=== PATIENT | male | born 1970 | race Caucasian/White ===

== ENCOUNTER 2020-11-19 10:33 | Emergency (ER) | payer OTHER, SELFPAY ==
[2020-11-19] VITALS (20 sets, daily range): BP systolic 110–128; BP diastolic 34–85; PULSE 66–84; RESP 12–22; TEMP 36.6; O2SAT 94–99
--- NOTE | ~2020-11-19 | XR_ITS ---
EXAMINATION: XR chest 2V EXAM DATE: 11/19/2020 12:09 INDICATION: Syncope, history of arrhythmia. TECHNIQUE: Frontal and lateral projections of the chest obtained and reviewed. There is no prior kush dy for comparison. FINDINGS: There is pulmonary vascular congestion. Heart is upper limits of normal in size. The lungs are clear. There are no pleural effusions. There is no pneumothorax suspected. The bones and sof t tissues are unremarkable. IMPRESSION: Borderline cardiomegaly. Pulmonary vascular congestion. Reviewed, dictated and finalized at location A.
--- NOTE | 2020-11-19 10:51 | ECG_ITS ---
Measurements Intervals [place] Rate: 76 P: [place]: 0 QRS: 75 QRSD: 107 T: 11 QT: 396 QTc: 446 Interpretive Statements ATRIAL FIBRILLATION DELAYED PRECORDIAL R/S TRANSITION BORDERLINE ST-T WAVE ABNORMALITY- INFERIOR LEADS BASELINE ARTIFACT- I, III, AVR, AVL, AVF ABNORMAL ECG Electronically Signed On 11-20-2020 7:57:40 CDT by Pepito Mcdonald D.O.
--- NOTE | 2020-11-19 11:13 | ED.CHESTPAIN ---
HPI - Chest Pain General Chief Complaint: Chest Pain Stated Complaint: ambulance Related Data Home Medications Medication Instructions Recorded Confirmed allopurinol 300 mg PO DAILY 11/19/20 11/19/20 amlodipine-benazepril 1 cap PO DAILY 11/19/20 11/19/20 Allergies Allergy/AdvReac Type Severity Reaction Status Date / Time No Known Allergies Allergy Verified 11/19/20 10:54 Course Vital Signs Vital signs: Vital Signs Temperature 36.6 C 11/19/20 10:33 Pulse Rate 67 11/19/20 10:33 Respiratory Rate 18 11/19/20 10:33 Blood Pressure 117/78 11/19/20 10:33 Pulse Oximetry 95 11/19/20 10:33 Temperature 36.6 C 11/19/20 10:33 Pulse Rate 72 11/19/20 11:01 Respiratory Rate 19 11/19/20 11:01 Blood Pressure 115/85 11/19/20 11:01 Pulse Oximetry 95 11/19/20 11:01 Discharge Plan Discharge Prescriptions: No Action allopurinol 300 mg Tablet 300 mg PO DAILY RF: 0 amlodipine-benazepril 10-20 mg Capsule 1 cap PO DAILY RF: 0
--- NOTE | 2020-11-19 11:13 | ED.SYNCOPE ---
HPI - Syncope General Chief Complaint: Chest Pain Stated Complaint: ambulance Time Seen by Provider: 11/19/20 11:00 Source: patient and family Mode of arrival: ambulatory Limitations: no limitations History of Present Illness HPI narrative: Discussed history with patient, and paramedics. He comes in after having a syncopal episode at home. He and the had just had sex. She got up to go to the bathroom and he felt hot and diaphoretic. She returned and found him unconscious. He remained unconscious for several minutes. When the paramedics got there he had a heart rate in the 200s, which the medic thought was V tach. She asked him to bear down and he converted. He is now in A fib with a rate in the 70s. He said he did not feel well this am, but he denies any shortness of breath this am, or chest pain. He denies any other symptoms. MD complaint: loss of consciousness Onset (ago): minute(s) Witnessed: Yes - by Bystander Context: at rest Injuries sustained associated with event: none Current symptoms: none History: other (tachacardia) Treatments prior to arrival: none and other (bearing down) Related Data Home Medications Medication Instructions Recorded Confirmed allopurinol 300 mg PO DAILY 11/19/20 11/19/20 amlodipine-benazepril 1 cap PO DAILY 11/19/20 11/19/20 Allergies Allergy/AdvReac Type Severity Reaction Status Date / Time No Known Allergies Allergy Verified 11/19/20 10:54 Review of Systems Constitutional: Comments: states he did not feel well this am Eyes: Eyes: Reports no additional eye complaints ENT: Reports system reviewed and no additional complaints, except as documented Cardiovascular: Cardiovascular: Reports no additional cardiovascular complaints Respiratory: Respiratory: Reports no additional respiratory complaints Gastrointestinal: Gastrointestinal: Reports no additional gastrointestinal complaints Genitourinary: Genitourinary: Reports no additional male genitourinary complaints Musculoskeletal: Musculoskeletal: Reports no additional musculoskeletal complaints Integumentary/Breasts: Skin/Breast: Reports system reviewed and no additional complaints, except as docu Neurologic: Reports system reviewed and no additional complaints, except as documented Psychiatric: Psychiatric: Reports no additional psychiatric complaints Endocrine: Endocrine: Reports no additional endocrine complaints Hematologic/Lymphatic: Hematologic/Lymphatic: Reports no additional hematologic/lymphatic complaints Allergic/Immunologic: Allergic/Immunologic: Reports no additional allergic/immunologic complaints PMFSH Past Medical History Medical History (Updated 11/19/20 @ 13:15 by Yaakov Ivan MD) Gout Hypertension Tachycardia Surgical History Surgical History (Updated 11/19/20 @ 13:04 by Yaakov Ivan MD) H/O vasectomy Family History Family History (Updated 11/19/20 @ 13:06 by Yaakov Ivan MD) Father CHF (congestive heart failure) Pacemaker Mother Hypertension Cerebrovascular accident Social History Social History (Updated 11/19/20 @ 13:06 by Yaakov Ivan MD) Smoking status: Never smoker Alcohol intake: never Living arrangements: with family Additional living arrangements comments: Sexual Orientation (if Verbalized by the Patient): Straight or Heterosexual Exam Const: General: no acute distress Orientation/consciousness: patient oriented x3 HENMT: Head: normal to inspection Eyes: Conjunctivae: conjunctivae normal Neck: Neck: normal visual inspection Chest: Chest palpation & inspection: normal inspection of the chest Resp: Effort & Inspection: normal respiratory effort Auscultation: clear to auscultation bilaterally Cardio: Other: irregular rate and rhythm GI: GI Palp: Yes Soft to palpation (non tender) Skin: General skin exam: normal color Neuro: General: patient oriented x3 Extrem: General: normal to inspection Psych: Appe
[2020-11-19 11:31] LABS: Basophils Absolute Auto 0.02 K/mm3 (0.00-0.10); Basophils Percent Auto 0.1 % (0.0-1.0); Eosinophils Absolute Auto 0.15 K/mm3 (0.02-0.50); Hematocrit 39.4 % (40.0-54.0); Hemoglobin 13.4 g/dL (14.0-18.0); Immature Granulocyte Absolute 0.17 K/mm3 (0.00-0.00); Immature Granulocyte Percent A 1.1 % (0.0-0.0); Lymphocytes Absolute Auto 0.78 K/mm3 (1.10-4.50); Lymphocytes Percent Auto 5.2 % (18.0-42.0); Mean Corpuscular Hemoglobin 29.7 pg (27.0-31.0); Mean Corpuscular Volume 87.4 fL (78.0-102.0); Mean Platelet Volume 9.6 fl (8.7-11.0); Monocytes Absolute Auto 0.66 K/mm3 (0.10-0.90); Monocytes Percent Auto 4.4 % (2.0-11.0); Neutrophils Absolute Auto 13.3 K/mm3 (1.7-7.2); Neutrophils Percent Auto 88.2 % (50.0-70.0); Platelet Count Result 190 K/mm3 (150-420); Red Blood Count 4.51 M/mm3 (4.70-6.10); Red Cell Distribution Width 12.6 % (11.6-14.4); White Blood Count 15.1 K/mm3 (4.8-10.8)
[2020-11-19 11:47] LABS: BNP 10 pg/mL (0-100)
[2020-11-19 11:49] LABS: Alanine Aminotransferase 50 U/L (16-63); Albumin Level 3.5 g/dL (3.4-5.0); Alkaline Phosphatase 57 U/L (46-116); Anion Gap 8 mmol/L (8-16); Aspartate Amino Transferase 25 U/L (15-37); Bilirubin,Total 0.5 mg/dL (0.00-1.00); Blood Urea Nitrogen 17 mg/dL (7-18); Calcium 8.8 mg/dL (8.5-10.1); Carbon Dioxide 29 mmol/L (21-32); Chloride 101 mmol/L (98-108); Estimated CRCL calculation 91 ml/min; Estimated Glomerular Filt Rate 54; Glucose 219 mg/dL (70-99); Magnesium 1.8 mg/dL (1.8-2.4); Osmolality Calculated 294 mOsm/kg (285-295); Potassium 3.7 mmol/L (3.5-5.1); Sodium 138 mmol/L (136-145); Total Protein 7.2 g/dL (6.4-8.2)
[2020-11-19 11:50] LABS: Troponin I 65.7 ng/L (0.00-60.4)
[2020-11-19] MEDS: POTASSIUM BICARBONATE 25 MEQ TABEF 50 MEQ PO (12:36)
--- NOTE | 2020-11-19 12:39 | PC.NURSE ---
DR ADAIR SPEAKING WITH [facility] [place]
--- NOTE | 2020-11-19 13:17 | PC.NURSE ---
no change in pt status. pt sitting on stretcher, at bedside.
[2020-11-19 14:26] LABS: D Dimer 0.36 mg/L (0.19-0.50); Partial Thromboplastin Time 21.9 SEC (23.90-30.70); Prothrombin Time 10.7 Seconds (9.50-12.10)
--- NOTE | 2020-11-19 14:29 | PC.NURSE ---
Pt transferred to [facility] in [place], [place] room 452 per [facility]
== END 2020-11-19 14:29 | disposition short-term general hospital (02) ==
PROVIDERS: Emergency Provider Emergency Medicine
DX: R55 Syncope and collapse (principal); I10 Essential (primary) hypertension
CPT/HCPCS: 36415; 71046; 80053; 83735; 83880; 84484; 85025; 85380; 85610; 85730; 93005; 99285; A9270

== ENCOUNTER 2021-01-14 02:32 | Emergency (ER) | payer OTHER, SELFPAY ==
--- NOTE | ~2021-01-14 | XR_ITS ---
EXAMINATION: XR chest 1V portable EXAM DATE: 01/14/2021 03:00 INDICATION: Syncope, dyspnea, nausea. Diaphoretic. TECHNIQUE: Portable AP frontal chest x-ray was obtained. Comparison is made to prior examination from 11/19/2020. FINDINGS: The lungs are clear. There are no pleural effusions. Cardiac silhouette is prominent but magnified on this AP technique. There is no pneumothorax suspected. The bones and soft tissues are unremarkable. IMPRESSION: No acute cardiopulmonary findings. Reviewed, dictated and finalized at location A.
[2021-01-14 02:35] VITALS: BP 110/80; PULSE 90; RESP 18; TEMP 37; O2SAT 98
--- NOTE | 2021-01-14 02:38 | ECG_ITS ---
Measurements Intervals [place] Rate: 89 P: [place]: 0 QRS: 19 QRSD: 113 T: 5 QT: 367 QTc: 448 Interpretive Statements ATRIAL FIBRILLATION INTRAVENTRICULAR CONDUCTION DELAY DELAYED PRECORDIAL R/S TRANSITION BORDERLINE ST-T WAVE ABNORMALITY- INFERIOR LEADS BASELINE ARTIFACT- I, III, AVF ABNORMAL ECG Electronically Signed On 01-14-2021 17:59:40 CDT by Pepito Mcdonald D.O.
--- NOTE | 2021-01-14 02:42 | ED.SYNCOPE ---
HPI - Syncope General Chief Complaint: Arrhythmia/Palpitations Stated Complaint: PAIN Time Seen by Provider: 01/14/21 02:32 Source: patient and family Mode of arrival: EMS Limitations: no limitations History of Present Illness HPI narrative: 50-year-old man with a history of V-tach and atrial fibrillation comes in today after an episode of syncope while he was having intercourse with his . He was supine when it happened and was unconscious only for few seconds. EMS found his heart rate to be in the 130s but has since improved. His initial pulse ox on room air was 92%. He felt nauseated, short of breath and sweaty afterward, but is now improving. He had no chest pain. He felt unwell just prior to the syncopal episode but prior to that was doing well. he is scheduled to meet with his brown sourer (Dr. Bush) and lcsw (Dr Mcgraw) next week. He was diagnosed with COVID 1 month ago. MD complaint: loss of consciousness Onset (ago): minute(s) (45) -: second(s) Prodromal symptoms: other ( Did not feel well) Witnessed: Yes - by Bystander Context: during exertion Injuries sustained associated with event: none Current symptoms: shortness of breath, nausea and other (diaphoresis) History: previous syncopal episode Treatments prior to arrival: none Related Data Home Medications Medication Instructions Recorded Confirmed allopurinol 300 mg PO DAILY 11/19/20 01/14/21 apixaban [Eliquis] 5 mg PO DAILY 01/14/21 01/14/21 lisinopril [Prinivil] See Rx Instructions .ROUTE .COMPLEX 01/14/21 01/14/21 metoprolol succinate [Toprol XL] See Rx Instructions .ROUTE .COMPLEX 01/14/21 01/14/21 Allergies Allergy/AdvReac Type Severity Reaction Status Date / Time No Known Allergies Allergy Verified 11/19/20 10:54 Review of Systems Review of Systems: All systems reviewed & are unremarkable except as noted in HPI and below Constitutional: Constitutional: Denies chills, Reports fatigue, Denies fever(s) and Denies weakness Eyes: Eyes: Denies change in vision and Denies photophobia ENT: Denies nasal congestion and Denies sore throat Cardiovascular: Cardiovascular: Denies chest pain and Denies radiating jaw, neck or arm pain Respiratory: Respiratory: Denies cough, Reports dyspnea and Denies wheezing Gastrointestinal: Gastrointestinal: Denies abdominal pain, Denies diarrhea, Reports nausea and Reports vomiting Musculoskeletal: Musculoskeletal: Denies arthralgias and Denies joint swelling Integumentary/Breasts: Skin/Breast: Denies pruritus, Denies erythema and Denies rash Neurologic: Denies vertigo, Denies dizziness, Reports syncope, Denies headache(s), Denies focal weakness and Denies numbness Hematologic/Lymphatic: Hematologic/Lymphatic: Reports easy bleeding and Reports easy bruising Allergic/Immunologic: Allergic/Immunologic: Denies lip swelling and Denies throat swelling PMFSH Past Medical History Medical History Gout Hypertension Tachycardia Surgical History Surgical History H/O vasectomy Family History Family History (Updated 11/19/20 @ 13:06 by Yaakov Ivan MD) Father CHF (congestive heart failure) Pacemaker Mother Hypertension Cerebrovascular accident Social History Social History Smoking status: Never smoker Alcohol intake: never Additional living arrangements comments: Gender identity (if verbalized by the patient): Male Exam Const: General: alert Nutritional Appearance: obese Orientation/consciousness: patient oriented x3 Limitations: no limitations Other: Moderate acute distress, diaphoretic. Eyes: Conjunctivae: conjunctivae normal Pupils: Equal, round and reactive pupils present EOM: EOMs intact bilaterally Chest: Chest palpation & inspection: normal inspection of the chest Resp: Effort & I
[2021-01-14] MEDS: ONDANSETRON INJ 4 MG/2 ML VIAL IV PUSH (02:49)
[2021-01-14 02:58] LABS: Basophils Absolute Auto 0.02 K/mm3 (0.00-0.10); Basophils Percent Auto 0.2 % (0.0-1.0); Eosinophils Absolute Auto 0.13 K/mm3 (0.02-0.50); Eosinophils Percent Auto 1.3 % (1.0-6.0); Hematocrit 43.1 % (40.0-54.0); Hemoglobin 14.4 g/dL (14.0-18.0); Immature Granulocyte Absolute 0.05 K/mm3 (0.00-0.00); Immature Granulocyte Percent A 0.5 % (0.0-0.0); Lymphocytes Absolute Auto 1.72 K/mm3 (1.10-4.50); Lymphocytes Percent Auto 17.3 % (18.0-42.0); Mean Corpuscular HGB Conc 33.4 g/dL (32.0-36.0); Mean Corpuscular Hemoglobin 29.8 pg (27.0-31.0); Mean Corpuscular Volume 89.2 fL (78.0-102.0); Monocytes Absolute Auto 0.41 K/mm3 (0.10-0.90); Monocytes Percent Auto 4.1 % (2.0-11.0); Neutrophils Absolute Auto 7.6 K/mm3 (1.7-7.2); Neutrophils Percent Auto 76.6 % (50.0-70.0); Platelet Count Result 247 K/mm3 (150-420); Red Blood Count 4.83 M/mm3 (4.70-6.10); Red Cell Distribution Width 13.2 % (11.6-14.4); White Blood Count 9.9 K/mm3 (4.8-10.8)
[2021-01-14 03:03] VITALS: BP 120/58; PULSE 70; RESP 18; O2SAT 100
[2021-01-14 03:11] LABS: INR 1.1; Partial Thromboplastin Time 25.6 SEC (23.90-30.70); Prothrombin Time 11.9 Seconds (9.50-12.10)
[2021-01-14 03:19] LABS: Alanine Aminotransferase 66 U/L (16-63); Albumin Level 4.1 g/dL (3.4-5.0); Alkaline Phosphatase 65 U/L (46-116); Anion Gap 14 mmol/L (8-16); Aspartate Amino Transferase 35 U/L (15-37); Bilirubin,Total 0.7 mg/dL (0.00-1.00); Blood Urea Nitrogen 25 mg/dL (7-18); Calcium 9.2 mg/dL (8.5-10.1); Carbon Dioxide 25 mmol/L (21-32); Chloride 103 mmol/L (98-108); Estimated CRCL calculation 59 ml/min; Estimated Glomerular Filt Rate 50; Glucose 190 mg/dL (70-99); NT Pro B Type Natriuretic Pept 268 pg/mL (0-125); Osmolality Calculated 303 mOsm/kg (285-295); Potassium 3.3 mmol/L (3.5-5.1); Sodium 142 mmol/L (136-145); Total Protein 7.7 g/dL (6.4-8.2)
[2021-01-14 03:20] LABS: Troponin I 7.3 ng/L (0.00-60.4)
[2021-01-14 03:30] VITALS: BP 111/68; PULSE 60; RESP 18; TEMP 36.6; O2SAT 100
[2021-01-14 04:05] VITALS: BP 111/57; PULSE 69; RESP 16; O2SAT 100
[2021-01-14] MEDS: SODIUM CHLORIDE 0.9% IV 1,000 ML 999 ML IV CONT (04:28)
[2021-01-14 05:05] VITALS: BP 108/60; PULSE 64; RESP 16; TEMP 36.6; O2SAT 100
--- NOTE | 2021-01-14 05:08 | PC.NURSE ---
[address] [facility], no beds 0335 called [facility], same level of care 0340 patient finally agreed to [facility]
--- NOTE | 2021-01-14 05:15 | PC.NURSE ---
[address] [facility], 0514 Hospitalist called back
[2021-01-14 06:05] LABS: Troponin I 14.7 ng/L (0.00-60.4)
[2021-01-14 07:06] VITALS: BP 108/60; PULSE 60; RESP 16; TEMP 36.6; O2SAT 98
== END 2021-01-14 07:09 | disposition short-term general hospital (02) ==
PROVIDERS: Emergency Provider Emergency Medicine
DX: R55 Syncope and collapse (principal); I48.91 Unspecified atrial fibrillation; R06.02 Shortness of breath
CPT/HCPCS: 36415; 71045; 80053; 83880; 84484; 85025; 85380; 85610; 85730; 93005; 96361; 96374; 99285; J2405; J7030

== ENCOUNTER 2021-01-18 22:20 | Emergency (ER) | payer OTHER, SELFPAY ==
[2021-01-18 22:24] VITALS: BP 83/47; PULSE 247; RESP 20; TEMP 35.6; O2SAT 96
[2021-01-18 22:30] VITALS: PULSE 109
[2021-01-18] MEDS: MIDAZOLAM HCL (*CRX) 2 MG/2 ML VIAL IV PUSH (22:32)
[2021-01-18] MEDS: fentaNYL CITRATE INJ (*CRX) 100 MCG/2 ML VIAL 75 MCG IV PUSH (22:32)
--- NOTE | 2021-01-18 22:41 | ECG_ITS ---
Measurements Intervals [place] Rate: 109 P: AK: 0 QRS: 99 QRSD: 109 T: 28 QT: 355 QTc: 479 Interpretive Statements ATRIAL FIBRILLATION WITH RAPID VENTRICULAR RESPONSE RIGHT AXIS DEVIATION BORDERLINE R WAVE PROGRESSION, ANTERIOR LEADS BORDERLINE ST-T WAVE ABNORMALITY- ANTEROLAT/INF LEADS ABNORMAL ECG Electronically Signed On 01-19-2021 6:17:54 CDT by Pepito Mcdonald D.O.
[2021-01-18] MEDS: SODIUM CHLORIDE 0.9% IV 1,000 ML 999 ML IV CONT (22:50)
--- NOTE | 2021-01-18 22:50 | ECG_ITS ---
Measurements Intervals [place] Rate: 247 P: [place]: 0 QRS: 220 QRSD: 278 T: 0 QT: 267 QTc: 542 Interpretive Statements WIDE COMPLEX TACHYCARDIA, PROBABLY VENTRICULAR TACHYCARDIA BASELINE ARTIFACT- I, AVL ABNORMAL ECG Electronically Signed On 01-19-2021 6:22:23 CDT by Pepito Mcdonald D.O.
[2021-01-18 23:12] LABS: Basophils Absolute Auto 0.01 K/mm3 (0.00-0.10); Basophils Percent Auto 0.1 % (0.0-1.0); Eosinophils Absolute Auto 0.12 K/mm3 (0.02-0.50); Eosinophils Percent Auto 1.2 % (1.0-6.0); Hematocrit 42.6 % (40.0-54.0); Hemoglobin 13.8 g/dL (14.0-18.0); Lymphocytes Absolute Auto 1.18 K/mm3 (1.10-4.50); Lymphocytes Percent Auto 12.2 % (18.0-42.0); Mean Corpuscular HGB Conc 32.4 g/dL (32.0-36.0); Mean Corpuscular Hemoglobin 29.6 pg (27.0-31.0); Mean Corpuscular Volume 91.4 fL (78.0-102.0); Mean Platelet Volume 10.5 fl (8.7-11.0); Monocytes Absolute Auto 0.22 K/mm3 (0.10-0.90); Monocytes Percent Auto 2.3 % (2.0-11.0); Neutrophils Percent Auto 83.2 % (50.0-70.0); Platelet Count Result 241 K/mm3 (150-420); Red Blood Count 4.66 M/mm3 (4.70-6.10); Red Cell Distribution Width 13.4 % (11.6-14.4); White Blood Count 9.7 K/mm3 (4.8-10.8)
--- NOTE | 2021-01-18 23:12 | ED.GENADULT ---
HPI - General Adult General Chief complaint: Arrhythmia/Palpitations Stated complaint: AMB Source: patient and EMS Mode of arrival: EMS Limitations: no limitations History of Present Illness HPI narrative: Lorenzo is a 50M with a PMH of afib, hypertension, and gout that was brought in by EMS in wide complex regular ventricular tachycardia. He was reportedly having intercourse with his when he had palpitations, became lightheaded, diaphoretic and had chest pain that radiated to his shoulder. After this EMS was called. EMS gave 150 of amiodarone in the truck before arrival with no effect. Upon arrival he was struggling to remain conscious and could not give further history. Related Data Home Medications Medication Instructions Recorded Confirmed allopurinol 300 mg PO DAILY 11/19/20 01/18/21 apixaban [Eliquis] 5 mg PO BID 01/14/21 01/18/21 lisinopril [Prinivil] 10 mg PO DAILY 01/14/21 01/18/21 metoprolol succinate [Toprol XL] 50 mg PO DAILY 01/14/21 01/18/21 Allergies Allergy/AdvReac Type Severity Reaction Status Date / Time No Known Allergies Allergy Verified 11/19/20 10:54 Review of Systems Review of Systems: ROS unobtainable: Yes unobtainable due to medical condition FOR[facility]LY [facility] Past Medical History Medical History Gout Hypertension Tachycardia Surgical History Surgical History H/O vasectomy Family History Family History Father CHF (congestive heart failure) Pacemaker Mother Hypertension Cerebrovascular accident Social History Social History Smoking status: Never smoker Alcohol intake: never Additional living arrangements comments: Gender identity (if verbalized by the patient): Male Exam Const: General: diaphoretic Orientation/consciousness: patient oriented x3 Limitations: other limitations Other: In severe distress struggling to stay conscious, very diaphoretic HENMT: Other: Normocephalic, atraumatic Eyes: Conjunctivae: conjunctivae normal Pupils: Equal, round and reactive pupils present Neck: Other: JVD was present Chest: Chest palpation & inspection: normal inspection of the chest Resp: Effort & Inspection: labored, retractions, tachypneic and uses accessory muscles Cardio: Rate: tachycardic Other: Very tachycardic. Given rate little else could be heard. GI: Inspection: non-distended GI Palp: Yes Soft to palpation, No Tenderness to palpation present (GI) and No Guarding due to palpation present (GI) Skin: Other: Was very pale and diaphoretic Neuro: General: patient oriented x3 and moves all extremities Extrem: General: normal to inspection Psych: Appearance: grossly normal Affect: Anxious affect present Attitude: cooperative Thought content: Yes Normal thought content present Course Course Emergency Course: Upon arrival another EKG was performed immediately which showed wide complex tachycardia with a rate of 247. Immediatly after seeing this preparations were made for cardioversion. He was given 2mg of versed and 75mg of fentanyl. Following administration a shock was administered with 100J synchronized. Following synchronization he went into afib w/ RVR with a rate of 109. His BP dropped to 80s systolic so he was given more fluids. Later his BP dropped to the 80's systolic so an additional bag of fluids was given which brought it to the 90's. I called [facility] at [phone] who called back promptly with Dr. Smart of [facility]. He recommended Levophed as there are no signs of acute heart failure and to await the call back from the lithograph printer. We received a call back from [facility] at [phone] who who reported that they may not have a bed in the ICU but she is going to double check with the lithograph printer. The levophed was sto
[2021-01-18 23:19] LABS: INR 1.1; Prothrombin Time 11.4 Seconds (9.50-12.10)
[2021-01-18 23:30] VITALS: BP 88/53; PULSE 79; RESP 20; O2SAT 99
[2021-01-18 23:32] LABS: Alanine Aminotransferase 95 U/L (16-63); Albumin Level 3.8 g/dL (3.4-5.0); Alkaline Phosphatase 79 U/L (46-116); Anion Gap 15 mmol/L (8-16); Aspartate Amino Transferase 107 U/L (15-37); Bilirubin,Total 0.7 mg/dL (0.00-1.00); Blood Urea Nitrogen 27 mg/dL (7-18); Calcium 9.1 mg/dL (8.5-10.1); Carbon Dioxide 22 mmol/L (21-32); Chloride 100 mmol/L (98-108); Estimated CRCL calculation 66 ml/min; Estimated Glomerular Filt Rate 40; Glucose 279 mg/dL (70-99); Magnesium 2.1 mg/dL (1.8-2.4); Osmolality Calculated 299 mOsm/kg (285-295); Phosphorus 5.3 mg/dL (2.6-4.7); Potassium 3.4 mmol/L (3.5-5.1); Sodium 137 mmol/L (136-145); Total Protein 7.4 g/dL (6.4-8.2); Troponin I 21.4 ng/L (0.00-60.4)
[2021-01-18 23:33] LABS: Thyroid Stimulating Hormone 5.65 uIU/mL (0.36-3.74)
[2021-01-18] MEDS: SODIUM CHLORIDE 0.9% IV 1,000 ML 150 ML IV CONT (23:58)
--- NOTE | 2021-01-18 23:59 | PC.NURSE ---
call to [facility] for cardiology. dr agarwal speaking
[2021-01-19] VITALS (9 sets, daily range): BP systolic 91–119; BP diastolic 58–79; PULSE 55–76; RESP 20; TEMP 36.3–37.1; O2SAT 98–100
[2021-01-19] MEDS: NOREPINEPHRINE 8 MG/D5W 250 ML 8 MG/250 ML BAG 9.38 MG IV CONT (00:37)
--- NOTE | 2021-01-19 01:09 | PC.NURSE ---
[facility] per leonel, only 2 icu beds available and 2 neuro surg pt that are going to need those beds. leonel recommends calling other facilities for placement. dr agarwal notified and discussing plan of care with pt and at bedside.
--- NOTE | 2021-01-19 02:00 | PC.NURSE ---
pt resting per cot, lights out for comfort. remains at bedside. awaiting call back from cardiology at [facility].
--- NOTE | 2021-01-19 02:51 | PC.NURSE ---
pt up to bathroom for bowel movement. tolerated well. denies dizziness, or lightheadedness. assisted back to bed
[2021-01-19] MEDS: AMIODARONE 360 MG/D5W 200 ML 360 MG/200 ML BAG 33.33 MG IV CONT (02:52)
[2021-01-19] MEDS: MAGNESIUM SULF 2 GM/WATER 50ML 2 GM/50 ML BAG IVPB (02:53)
--- NOTE | 2021-01-19 04:12 | PC.NURSE ---
0402 [facility] called for transfer, awaiting arrival
--- NOTE | 2021-01-19 04:45 | PC.NURSE ---
0430 [facility] here , report to [facility]. pt loaded remains pain free and stable.
== END 2021-01-19 04:40 | disposition short-term general hospital (02) ==
PROVIDERS: Emergency Provider Family Medicine
DX: I47.2 Ventricular tachycardia (principal)
CPT/HCPCS: 36415; 80053; 83735; 84100; 84443; 84484; 85025; 85610; 93005; 96361; 96365; 96367; 96368; 96374; 96375; 99285; J0282; J2250; J3010; J3475; J7030; J7060

== ENCOUNTER 2021-02-22 20:17 | Emergency (ER) | payer OTHER, SELFPAY ==
--- NOTE | ~2021-02-22 | XR_ITS ---
EXAMINATION: XR chest 1V portable DATE: 02/22/2021 21:25 INDICATION: Anterior left lower chest pain TECHNIQUE: frontal view of the chest was obtained. COMPARISON: Chest radiograph dated 01/14/21 FINDINGS: The lungs remain clear with no focal airspace opacities, pulmonary edema, pleural effusion or pneumot horax. Borderline heart size accounting for AP technique. Three lead pacemaker/AICD seen with leads p rojecting over the expected locations of the right atrial appendage, apex of the right ventricle and overlying the left ventricle likely having traversed the coronary sinus. IMPRESSION: 1. Borderline heart size. No acute cardiopulmonary disease. Reviewed, dictated and finalized at location A.
--- NOTE | 2021-02-22 20:27 | ECG_ITS ---
Measurements Intervals [place] Rate: 66 P: [place]: 0 QRS: 98 QRSD: 113 T: 254 QT: 401 QTc: 421 Interpretive Statements ELECTRONIC VENTRICULAR PACEMAKER FUSION COMPLEXES UNDERLYING ATRIAL FIBRILLATION BASELINE ARTIFACT- V1 NO FURTHER INTERPRETATION IS POSSIBLE ABNORMAL ECG Electronically Signed On 02-22-2021 21:21:07 CDT by Pepito Mcdonald D.O.
[2021-02-22 20:46] VITALS: BP 135/90; PULSE 68; RESP 20; TEMP 36.9; O2SAT 97
[2021-02-22 20:56] LABS: Basophils Absolute Auto 0.03 K/mm3 (0.00-0.10); Basophils Percent Auto 0.4 % (0.0-1.0); Eosinophils Absolute Auto 0.28 K/mm3 (0.02-0.50); Eosinophils Percent Auto 3.7 % (1.0-6.0); Hematocrit 42.2 % (40.0-54.0); Hemoglobin 14.1 g/dL (14.0-18.0); Immature Granulocyte Absolute 0.02 K/mm3 (0.00-0.00); Immature Granulocyte Percent A 0.3 % (0.0-0.0); Lymphocytes Absolute Auto 1.43 K/mm3 (1.10-4.50); Lymphocytes Percent Auto 18.8 % (18.0-42.0); Mean Corpuscular HGB Conc 33.4 g/dL (32.0-36.0); Mean Corpuscular Hemoglobin 30.2 pg (27.0-31.0); Mean Corpuscular Volume 90.4 fL (78.0-102.0); Mean Platelet Volume 10.5 fl (8.7-11.0); Monocytes Absolute Auto 0.54 K/mm3 (0.10-0.90); Monocytes Percent Auto 7.1 % (2.0-11.0); Neutrophils Absolute Auto 5.3 K/mm3 (1.7-7.2); Neutrophils Percent Auto 69.7 % (50.0-70.0); Platelet Count Result 182 K/mm3 (150-420); Red Blood Count 4.67 M/mm3 (4.70-6.10); Red Cell Distribution Width 13.7 % (11.6-14.4); White Blood Count 7.6 K/mm3 (4.8-10.8)
--- NOTE | 2021-02-22 21:04 | ED.GENADULT ---
HPI - General Adult General Chief complaint: Unspecified Stated complaint: chest pain Source: patient and family Mode of arrival: ambulatory History of Present Illness HPI narrative: Lorenzo is a 50M with a PMH of gout, HTN, Afib/wide complex V-tach s/p pacemaker placement last month that presented to the ED with an abnormal sensation in his left lower chest/LUQ. He was sitting around the house when it started feeling off. He is having trouble describing it but it is sort of described as a constant twinge. He cannot identify and aggravating or alleviating factors. No N/V, lightheadedness/syncope or SOB. No other abdominal pain or diarrhea. Related Data Home Medications Medication Instructions Recorded Confirmed allopurinol 300 mg PO DAILY 11/19/20 02/22/21 apixaban [Eliquis] 5 mg PO BID 01/14/21 02/22/21 lisinopril [Prinivil] 5 mg PO DAILY 01/14/21 02/22/21 metoprolol succinate [Toprol XL] 50 mg PO DAILY 01/14/21 02/22/21 amiodarone 100 mg PO BID 02/22/21 02/22/21 Allergies Allergy/AdvReac Type Severity Reaction Status Date / Time No Known Allergies Allergy Verified 02/22/21 20:58 Review of Systems Constitutional: Constitutional: Reports no additional constitutional complaints Eyes: Eyes: Reports no additional eye complaints ENT: Reports system reviewed and no additional complaints, except as documented Cardiovascular: Cardiovascular: Reports as per HPI Respiratory: Respiratory: Reports no additional respiratory complaints Gastrointestinal: Gastrointestinal: Reports no additional gastrointestinal complaints Genitourinary: Genitourinary: Reports no additional male genitourinary complaints Musculoskeletal: Musculoskeletal: Reports no additional musculoskeletal complaints Integumentary/Breasts: Skin/Breast: Reports system reviewed and no additional complaints, except as docu Neurologic: Reports system reviewed and no additional complaints, except as documented Psychiatric: Psychiatric: Reports no additional psychiatric complaints Endocrine: Endocrine: Reports no additional endocrine complaints Hematologic/Lymphatic: Hematologic/Lymphatic: Reports no additional hematologic/lymphatic complaints Allergic/Immunologic: Allergic/Immunologic: Reports no additional allergic/immunologic complaints [facility] Past Medical History Medical History Gout Hypertension Tachycardia Surgical History Surgical History H/O vasectomy Family History Family History Father CHF (congestive heart failure) Pacemaker Mother Hypertension Cerebrovascular accident Social History Social History Smoking status: Never smoker Alcohol intake: never Additional living arrangements comments: Gender identity (if verbalized by the patient): Female Exam Const: General: cooperative, healthy appearing, comfortable and no acute distress HENMT: Head: normal to inspection and normocephalic Eyes: General: appearance normal, both eyes and all related structures Neck: Neck: normal visual inspection Chest: Chest palpation & inspection: normal inspection of the chest Resp: Effort & Inspection: normal respiratory effort Auscultation: clear to auscultation bilaterally Cardio: Rate: regular rate Rhythm: regular rhythm Peripheral pulses: Peripheral pulses 2+ throughout Other: no murmur noted GI: Inspection: normal to inspection GI Palp: No abdominal tenderness Auscultation: normal bowel sounds Skin: General skin exam: normal color Neuro: General: oriented to person, oriented to place and oriented to time Psych: Appearance: grossly normal Mental Status: mental status grossly normal Course Course Emergency Course: Ordered CXR and labs. EKG showed electronic ventricular pacemaker with a
[2021-02-22 21:05] LABS: Amphetamine Screen Urine Negative (Negative); Barbiturate Screen Urine Negative (Negative); Benzodiazepines Screen Urine Negative (Negative); Cannabinoid Screen Urine Negative (Negative); Cocaine Screen Urine Negative (Negative); Methadone Screen Urine Negative (Negative); Opiate Screen Urine Negative (Negative); Phencyclidine Screen Urine Negative (Negative)
[2021-02-22 21:12] LABS: INR 1.1; Prothrombin Time 11.4 Seconds (9.50-12.10)
[2021-02-22 21:20] LABS: Alanine Aminotransferase 35 U/L (16-63); Alkaline Phosphatase 60 U/L (46-116); Anion Gap 10 mmol/L (8-16); Aspartate Amino Transferase 13 U/L (15-37); Bilirubin,Total 0.5 mg/dL (0.00-1.00); Blood Urea Nitrogen 28 mg/dL (7-18); Calcium 9.2 mg/dL (8.5-10.1); Carbon Dioxide 28 mmol/L (21-32); Chloride 104 mmol/L (98-108); Estimated CRCL calculation 88 ml/min; Estimated Glomerular Filt Rate 57; Glucose 95 mg/dL (70-99); Lipase 206 U/L (73-393); NT Pro B Type Natriuretic Pept 318 pg/mL (0-125); Osmolality Calculated 299 mOsm/kg (285-295); Potassium 4.5 mmol/L (3.5-5.1); Sodium 142 mmol/L (136-145); Thyroid Stimulating Hormone 5.12 uIU/mL (0.36-3.74); Total Protein 7.4 g/dL (6.4-8.2); Troponin I 10.1 ng/L (0.00-60.4)
[2021-02-22 22:18] VITALS: BP 122/88; PULSE 69; RESP 20; O2SAT 97
== END 2021-02-22 22:20 | disposition home or self-care (01) ==
PROVIDERS: Emergency Provider Family Medicine; PCP Internal Medicine
DX: R07.89 Other chest pain (principal); I10 Essential (primary) hypertension
CPT/HCPCS: 36415; 71045; 80053; 80307; 83690; 83880; 84443; 84484; 85025; 85610; 93005; 99283; 99284